=== PATIENT | female | born 1985 | race African-American/Black ===

== ENCOUNTER 2017-09-21 17:45 | Emergency (ER) | payer MEDICAID ==
[~2017-09-21] VITALS: Ht 162.6 cm; Wt 49.4 kg
[~2017-09-21 17:45] MED LIST: ACETAMINOPHEN500 M3 ORAL; AMOXICILLIN500 MG ORAL; BACTRIM DS TAB1 EAC1 ORAL; CYCLOBENZAPRINE10 MG ORAL; IBUPROFEN800 MG ORAL; NORCO 5-325 TA1 EACH ORAL; OFLOXACIN5 ML LEFT EAR; PENICILLIN V P500 MG ORAL; TRAMADOL HCL50 MG ORAL; TYLENOL EXTRA500 MG ORAL
[2017-09-21] MEDS ORDERED: NKM (17:51)
[2017-09-21] MEDS ORDERED: AMOXICILLIN500 MG ORAL (18:10)
[2017-09-21] MEDS ORDERED: NORCO 5-325 TA1 EAC1 ORAL (18:10)
[2017-09-21] MEDS ORDERED: Norco 5mg/325mg tab ORAL ONE (18:15)
[2017-09-21 18:23] VITALS: BP 97/60
--- NOTE | 2017-09-21 21:17 | Emergency Room Report ---
History of Present Illness General Chief Complaint: Toothache Source: Patient Present Illness HPI The patient is a 32-year-old female presenting for tooth pain. Pain began yesterday. Described as a 10 out of 10 dull ache to the left upper tooth. She states that she has had dental infection in the past and this feels the same. Pain worse with chewing. She denies other symptoms including fever, chills, sore throat, cough Allergies: Coded Allergies: ASPIRIN (Verified Allergy, Unknown, 10/04/15) Patient History Past Medical History: see triage record Pertinent Family History: none Last Menstrual Period: 09/18/16 Now: No Reviewed Nursing Documentation: PMH: Agreed, PSxH: Agreed Nursing Documentation-PMH Hx Asthma: Yes Review of Systems All Other Systems: negative except mentioned in HPI Physical Exam Vital Signs Date Time Temp Pulse Resp B/P (MAP) Pulse Ox O2 Delivery O2 Flow Rate FiO2 09/21/17 17:49 98.2 65 16 97/60 100 Room Air Sp02 EP Interpretation: reviewed, normal General Appearance: no apparent distress, alert, GCS 15, non-toxic Head: normocephalic, atraumatic Eyes: bilateral eye normal inspection, bilateral eye PERRL ENT: normal pharynx, no angioedema, normal voice, other - TTP over the L upper premolar Neck: full range of motion, supple/symm/no masses Respiratory: chest non-tender, lungs clear, normal breath sounds, speaking full sentences Cardiovascular #1: regular rate, rhythm, no edema Musculoskeletal: back normal, gait/station normal, normal range of motion, non- tender Neurologic: alert, oriented x3, responsive, motor strength/tone normal, sensory intact, speech normal Psychiatric: judgement/insight normal, memory normal, mood/affect normal, no suicidal/homicidal ideation Skin: normal color, no rash, warm/dry, well hydrated Medical Decision Making PA Attestation Dr. Salazar is my supervising physician. Patient management was discussed with my supervising physician Diagnostic Impression: Primary Impression: Dental infection ER Course The patient is a 32-year-old female presenting for tooth pain Diagnoses considered but not limited to: Dental lamine, dental abscess, toothache , gingivitis, drug-seeking Physical exam: Afebrile. No apparent distress There is tenderness to palpation along the left upper premolar. No fluctuance. Multiple caries are evident Cures report shows no recent prescription The patient will be discharged with prescription for amoxicillin and pain medication and will followup with her dentist as soon as possible. She agrees Last Vital Signs Date Time Temp Pulse Resp B/P (MAP) Pulse Ox O2 Delivery O2 Flow Rate FiO2 09/21/17 18:23 98.2 65 16 97/60 100 Room Air Status: improved Disposition: HOME, SELF-CARE Condition: Improved Scripts Hydrocodone Bit/Acetaminophen 5-325* (NORCO 5-325 TABLET*) 1 Each Tablet 1 TAB ORAL Q6HR Y for For Pain, #8 TAB Prov: KIRAN FERNANDEZ.A. 09/21/17 Amoxicillin* (AMOXIL*) 500 Mg Capsule 500 MG ORAL Q12HR, #20 CAP Prov: KIRAN FERNANDEZ.A. 09/21/17 Patient Instructions: Dental Pain Additional Instructions: I discussed my findings with the patient. All questions and concerns have been answered. Treatment and medication compliance have been addressed. Return to ED if symptoms worsen, new symptoms arise, or if needed for any reason. Patient verbalized understanding of discharge instructions. The patient needs to followup with her dentist as soon as possible KIRAN FERNANDEZ Sep 21, 2017 21:17
== END 2017-09-21 18:25 | disposition home or self-care (01) ==
LOC: EMR 18:05
DX: K08.9 Disorder of teeth and supporting structures, unspecified (principal); J45.909 Unspecified asthma, uncomplicated
CPT/HCPCS: 99283